=== PATIENT | female | born 2000 | race Two or more races ===

== ENCOUNTER 2022-04-11 17:14 | Emergency (ER) | payer BC ==
[~2022-04-11] VITALS: Ht 165.1 cm; Wt 56.7 kg
--- NOTE | 2022-04-11 17:25 | NUR ---
BIBS C/O NECK PAIN X 3 WEEKS. AMBULATORY, PLACED ON BED.
--- NOTE | 2022-04-11 18:36 | NUR ---
PATIENT TAKEN TO CT VIA [facility]
--- NOTE | 2022-04-11 18:41 | NUR ---
PT RETURNED FROM CT VIA [facility]
--- NOTE | 2022-04-11 19:26 | NUR ---
Patient discharged to home in stable condition. Written and verbal after care instructions given. Patient verbalizes understanding of instruction.
[2022-04-11 19:38] VITALS: BP 113/70
== END 2022-04-11 19:20 | disposition home or self-care (01) ==
LOC: ER 17:29
DX: M54.2 Cervicalgia (principal); Z88.0 Allergy status to penicillin; Z60.2 Problems related to living alone
CPT/HCPCS: 72125-TC